=== PATIENT | female | born 1995 | race African-American/Black ===

== ENCOUNTER 2020-01-21 04:54 | Emergency (ER) | payer SELFPAY ==
[~2020-01-21] VITALS: Ht 160 cm; Wt 129.0 kg
[2020-01-21] MEDS ORDERED: IBUPROFEN 600MG TABLET PO ONE (06:30)
[2020-01-21 07:59] VITALS: BP 139/90
== END 2020-01-21 08:00 | disposition home or self-care (01) ==
LOC: ER 04:54
DX: S83.422A Sprain of lateral collateral ligament of left knee, initial encounter (principal); X58.XXXA Exposure to other specified factors, initial encounter; Y93.89 Activity, other specified; Y92.89 Other specified places as the place of occurrence of the external cause; I10 Essential (primary) hypertension
CPT/HCPCS: 73562; 81025; 99283